=== PATIENT | female | born 2000 | race Caucasian/White ===

== ENCOUNTER 2024-08-19 19:40 | Emergency (ER) | payer SELFPAY ==
[~2024-08-19] VITALS: Ht 152.4 cm; Wt 59.0 kg
[2024-08-19 19:48] VITALS: O2SAT 98
[2024-08-19 20:14] LABS: BASOPHILS % 1.1 % (0.0-2.0); EOSINOPHILS % 1.3 % (0.0-5.0); HEMATOCRIT. 41.7 % (36.0-48.0); HEMOGLOBIN. 13.9 g/dL (12.0-16.0); LYMPHOCYTES % 27.7 % (20.0-50.0); MEAN CORPUSCULAR HEMOGLOBIN 28.4 pg (28.0-32.0); MEAN CORPUSCULAR HGB CONC 33.2 g/dL (31.0-37.0); MEAN CORPUSCULAR VOLUME 85.5 fL (81.0-99.0); MONOCYTES % 5.1 % (2.0-8.0); NEUTROPHILS % 64.8 % (40.0-76.0); RED BLOOD CELL COUNT 4.88 mill/uL (4.2-5.4); RED CELL DISTRIBUTION WIDTH 13.5 % (11.6-14.6); WHITE BLOOD COUNT 10.7 x1000/uL (4.5-11.0)
[2024-08-19 20:21] LABS: CHLORIDE 107 mEq/L (98-107); POTASSIUM 3.7 mEq/L (3.5-5.1); SODIUM 142 mEq/L (136-145)
[2024-08-19 20:22] LABS: CALCIUM 9.2 mg/dL (8.7-10.4); CARBON DIOXIDE 26 mEq/L (21-32)
[2024-08-19] MEDS: LEVETIRACETAM 1000MG PREMIX 100 ML IV STA (20:22)
[2024-08-19 20:27] LABS: CREATININE 0.6 mg/dL (0.6-1.0); GLUCOSE 104 mg/dL (70-105); UREA NITROGEN BLOOD 7 mg/dL (9-23)
[2024-08-19 20:29] LABS: ALANINE AMINOTRANSFERASE 27 IU/L (10-49); ALBUMIN 4.6 g/dL (3.2-4.8); ASPARTATE AMINOTRANSFERASE 27 IU/L (<34); BILIRUBIN DIRECT 0.2 mg/dL (<=3.0); BILIRUBIN TOTAL 0.6 mg/dL (0.1-1.0)
[2024-08-19 20:30] LABS: PROTEIN TOTAL 7.4 g/dL (6.0-8.3)
[2024-08-19 20:32] LABS: ETHANOL BLOOD < 10 mg/dL (<10)
[2024-08-19 20:40] LABS: DIFFERENTIAL COMMENT 1
[2024-08-19 20:48] LABS: *AMPHETAMINES SCREEN URINE NEGATIVE (NEGATIVE); *BARBITURATES SCREEN URINE NEGATIVE (NEGATIVE); *BENZODIAZEPINES SCREEN URINE NEGATIVE (NEGATIVE); *COCAINE SCREEN URINE NEGATIVE (NEGATIVE); CANNABINOID URINE SCREEN PRESUMPTIVE POSITIVE (NEGATIVE); ECSTASY MDMA SCREEN URINE NEGATIVE (NEGATIVE); METHADONE URINE SCREEN NEGATIVE (NEGATIVE); OPIATES URINE SCREEN NEGATIVE (NEGATIVE); PHENCYCLIDINE URINE SCREEN NEGATIVE (NEGATIVE)
[2024-08-19 20:49] LABS: HCG SCREEN NEGATIVE
[2024-08-19 20:50] LABS: PROTHROMBIN TIME 10.6 sec (9.6-11.0)
[2024-08-19 20:51] LABS: CLARITY URINE CLEAR (CLEAR); COLOR URINE YELLOW (YELLOW); GLUCOSE URINE NEGATIVE (NEGATIVE); KETONES URINE TRACE (NEGATIVE); LEUKOCYTE ESTERASE URINE NEGATIVE (NEGATIVE); NITRITE URINE NEGATIVE (NEGATIVE); OCCULT BLOOD URINE TRACE (NEGATIVE); PROTEIN URINE 1+ (NEGATIVE); UROBILINOGEN URINE 0.2 E.U./dL (0.2-1.0)
[2024-08-19 21:39] LABS: MEAN PLATELET VOLUME 10.7 fl (7.4-10.4); PLATELET 170 x1000/uL (130-400)
[2024-08-19 21:55] LABS: BACTERIA URINE 1+
[2024-08-19 21:56] LABS: RBC URINE 0-2 /hpf (0-2); SQUAMOUS EPITHELIAL CELL URINE 1+ /lpf (RARE/1+); URIC ACID CRYSTALS URINE 1+ /lpf; WBC URINE 0-2 /hpf (0-2)
[2024-08-19 22:33] VITALS: BP 94/53; PULSE 62; RESP 12; O2SAT 99
== END 2024-08-19 22:51 | disposition home or self-care (01) ==
LOC: ER 19:40
DX: R56.9 Unspecified convulsions (principal)
CPT/HCPCS: 80076; 80305; 80048; 81003; 81025; 80320; 82962; 84703; 83690; 85025; 85610; 36415; 71045; 70450; 93005; 96365; 99285; J1953; G0480

== ENCOUNTER 2024-09-12 14:22 | Emergency (ER) | payer SELFPAY ==
[~2024-09-12] VITALS: Ht 160 cm; Wt 47.0 kg
[2024-09-12 14:27] VITALS: O2SAT 99
[2024-09-12 14:29] VITALS: BP 130/73; PULSE 68; RESP 16; TEMP 36.6; O2SAT 99
[2024-09-12] MEDS ORDERED: BACITRACIN ZINC OINT UDPKT TOP ONE (15:45)
[2024-09-12] MEDS ORDERED: TETANUS, DIPHTHERIA, PERTUSSIS VAC/PF 0.5ML (>10YR OLD) IM ONE (15:45)
[2024-09-12] MEDS ORDERED: LIDOCAINE HCL/EPINEPHRINE 1%-EPI 1:100,000 20ML VIAL INFIL ONE (15:45)
[2024-09-12] MEDS ORDERED: ACETAMINOPHEN 325MG TABLET PO ONE (15:45)
[2024-09-12] MEDS ORDERED: LIDOCAINE HCL 1% 20ML VIAL INFIL ONE (16:45)
[2024-09-12] MEDS ORDERED: LIDOCAINE HCL 1% 20ML VIAL INFIL NR (16:45)
[2024-09-12] MEDS ORDERED: BO1 TP (17:05)
[2024-09-12] MEDS ORDERED: ACET-2708 MT (17:07)
[2024-09-12] MEDS: ACETAMINOPHEN 325MG TABLET PO NR (18:04)
[2024-09-12] MEDS: TETANUS, DIPHTHERIA, PERTUSSIS VAC/PF 0.5ML (>10YR OLD) IM ONE (18:06)
== END 2024-09-12 18:14 | disposition home or self-care (01) ==
LOC: ER 14:22
DX: S61.211A Laceration without foreign body of left index finger without damage to nail, initial encounter (principal); Z79.899 Other long term (current) drug therapy; W26.0XXA Contact with knife, initial encounter; Y93.89 Activity, other specified; Y92.89 Other specified places as the place of occurrence of the external cause; Y99.8 Other external cause status
CPT/HCPCS: 81025; 90715; 12002; 96372; 99283; J2004; J3490; Z7610 ×2

== ENCOUNTER 2024-09-15 20:25 | Emergency (ER) | payer SELFPAY ==
[~2024-09-15] VITALS: Ht 152.4 cm; Wt 54.9 kg
[~2024-09-15 20:25] MED LIST: ACET-2708 MT; BO1 TP
[2024-09-15 20:39] VITALS: O2SAT 99
[2024-09-15 21:58] VITALS: BP 111/74; PULSE 74; RESP 18; TEMP 36.8; O2SAT 99
== END 2024-09-15 22:04 | disposition home or self-care (01) ==
LOC: ER 20:25
DX: S61.011D Laceration without foreign body of right thumb without damage to nail, subsequent encounter (principal); Z79.899 Other long term (current) drug therapy; X58.XXXD Exposure to other specified factors, subsequent encounter
CPT/HCPCS: 99281